=== PATIENT | male | born 1980 | race Caucasian/White ===

== ENCOUNTER 2020-05-02 16:23 | Emergency (ER) | payer BC ==
--- NOTE | 2020-05-02 17:22 | EDM.PDOC ---
ED HPI GENERAL MEDICAL PROBLEM - General Chief Complaint: Respiratory Problem Stated Complaint: COVID POSITIVE, POSSIBLE PNUEMONIA Time Seen by Provider: 05/02/20 16:57 Source of Information: Reports: Patient History Limitations: Reports: No Limitations - History of Present Illness INITIAL COMMENTS - FREE TEXT/NARRATIVE: HISTORY AND PHYSICAL: History of present illness: Patient is a 40-year-old male who presents to the emergency room after he was instructed to by the clinic. Patient states he was diagnosed with COVID-19 and was swabbed 2 to 3 days ago. Patient states he received a call today from the clinic stating he was Covid positive. Patient states that a few days ago he was having a cough. Patient states he is not having any symptoms today and has not had any symptoms the past few days. Patient states when the clinic called he told them he had a cough that caused some chest pain 3 days ago but other than that has not having any symptoms today. Patient states he is not currently having any chest pain and states he is completely symptom-free and has no complaints at this time. Patient denies fever, chills, chest pain, shortness of breath, or cough. Denies headache, neck stiff ness, change in vision, syncope, or near syncope. Denies nausea, vomiting, abdominal pain, diarrhea, constipation, or dysuria. Has not noted any blood in urine or stool. Patient has been eating and drinking appropriately. Review of systems: As per history of present illness and below otherwise all systems reviewed and negative. Past medical history: As per history of present illness and as reviewed below otherwise noncontributory. Surgical history: As per history of present illness and as reviewed below otherwise noncontributory. Social history: See social history for further information Family history: As per history of present illness and as reviewed below otherwise noncontributory. Physical exam: General: Patient is alert, oriented, and in no acute distress. Patient sitting comfortably on exam table. HEENT: Atraumatic, normocephalic, pupils equal and reactive bilaterally, negative for conjunctival pallor or scleral icterus, mucous membranes moist, TMs normal bilaterally, throat clear, neck supple, nontender, trachea midline. No drooling or trismus noted. No meningeal signs. No hot potato voice noted. Lungs: Clear to auscultation, breath sounds equal bilaterally, chest nontender. Heart: S1S2, regular rate and rhythm without overt murmur Abdomen: Soft, nondistended, nontender. Negative for masses or hepatosplenomegaly. Negative for costovertebral tenderness. Pelvis: Stable nontender. Genitourinary: Deferred. Rectal: Deferred. Skin: Intact, warm, dry. No lesions or rashes noted. Extremities: Atraumatic, negative for cords or calf pain. Neurovascular unremarkable. Neuro: Awake, alert, oriented. Cranial nerves II through XII unremarkable. Cerebellum unremarkable. Motor and sensory unremarkable throughout. Exam nonfocal. Notes: Patient is tachycardic 110s on exam but declines diagnostics for tachycardia evaluation. All risks vs benefits discussed with patinet and expresses understanding. Strict return precautions thoroughly discussed with patient and expresses understanding. Symptoms are prompt return to the ED thoroughly discussed with patient. Discussed importance for follow-up with a primary care provider. Voices understanding and is agreeable to plan of care. Denies any further questions or concerns at this time. Diagnostics: EKG (Patient declines all other diagnostics and evaluation for tachycardia. All risks vs benefits discussed with patient and expresses understanding.) Therapeutics: None Prescription: None Impression: COVID-19 infection Tachycardia, unspecified Plan: 1. Please start and/or continue to take your vitamin with folic acid once daily. 2. Pelvic rest until cleared by your OBGYN (no tampons, sex, etc...) 3. Tylenol as needed for pain management. This is safe to use in . 4. Follow up with your PASTRYCOOK as discussed. Return to the ED as needed and as discussed. Definitive disposition and diagnosis as appropriate pending reevaluation and review of above. - Related Data Allergies Allergy/AdvReac Type Severity Reaction Status Date / Time No Known Allergies Allergy Verified 05/02/20 16:58 Home Meds: Home Meds . [No Known Home Meds] 05/02/20 [History] Past Medical History Respiratory History: Reports: Sleep Apnea, Other (See Below) Other Respiratory History: on cpap - Past Surgical History HEENT Surgical History: Reports: Adenoidectomy, Myringotomy w Tube(s), Tonsillectomy Respiratory Surgical History: Reports: None Social & Family History - Family History Family Medical History: No Pertinent Family History - Tobacco Use Tobacco Use Status *Q: Never Tobacco User Second Hand Smoke Exposure: No - Caffeine Use Caffeine Use: Reports: None - Recreational Drug Use Recreational Drug Use: No ED ROS GENERAL - Review of Systems Review Of Systems: Comprehensive ROS is negative, except as noted in HPI. ED EXAM, GENERAL - Physical Exam Exam: See Below (see dictation) Course - Vital Signs Last Recorded V/S: Last Vital Signs Temp 97.7 F 05/02/20 16:50 Pulse 112 H 05/02/20 16:50 Resp 20 05/02/20 16:50 BP 146/96 H 05/02/20 16:50 Pulse Ox 96 05/02/20 16:50 Departure - Departure Time of Disposition: 17:13 Disposition: Home, Self-Care 01 Clinical Impression: COVID-19 virus infection, Tachycardia - Discharge Information Referrals: Azeb Cheatham [employer] [Primary Care Provider] - Additional Instructions: The following information is given to patients seen in the emergency department who are being discharged to home. This information is to outline your options for follow-up care. We provide all patients seen in our emergency department with a follow-up referral. The need for follow-up, as well as the timing and circumstances, are variable depending upon the specifics of your emergency department visit. If you don't have a primary care physician on staff, we will provide you with a referral. We always advise you to contact your personal physician following an emergency department visit to inform them of the circumstance of the visit and for follow-up with them and/or the need for any referrals to a consulting specialist. The emergency department will also refer you to a specialist when appropriate. This referral assures that you have the opportunity for follow-up care with a specialist. All of these measure are taken in an effort to provide you with optimal care, which includes your follow-up. Under all circumstances we always encourage you to contact your private physician who remains a resource for coordinating your care. When calling for follow-up care, please make the office aware that this follow-up is from your recent emergency room visit. If for any reason you are refused follow-up, please contact the [facility] Emergency Department at and asked to speak to the emergency department charge nurse. [facility] [address] [place] [id number] [facility] [address] [place] [address] 1. Continue to monitor for trouble breathing, new confusion or inability to arouse, bluish lips or face or any of the other symptoms we discussed -if this occurs please return to the emergency room.Continue to monitor your health at home for worsening symptoms so that you can be taken care of and treated quickly if needed. 2. Please self quarantine until 10 days have passed since your symptoms began AND you are fever free (<100.4 degrees fahrenheit) for 24 hours without the use of fever-reducing medications AND symptoms are improving. You should restrict activities outside of your home, except for getting medical care. Do not go to work, school, or public areas. Avoid using public transportation, ride-sharing, or taxis. Inform any persons that you have been in contact with since you started becoming symptomatic that you have tested positive; they should be made aware and take the appropriate steps as needed. 3. You may alternate Tylenol and ibuprofen as needed for pain and fever management. 4. The [facility] will be calling you and following up with you. The [place] COVID 19 Hotline phone number , They are open Tuesday - Tuesday 7am - 7pm. Follow up with your primary care provider for re-evaluation and re-testing after quarantine and discuss when you should be seen. 5. For more specific guidelines regarding isolation/quarantine please visit this website. https://www.health.[place].gov/sites/www/files/documen ts/Files/JUANITA/coronavirus/Factsheet_for_People_With_COVID-19.pdf Sepsis Event Note (ED) - Evaluation Sepsis Screening Result: No Definite Risk - Focused Exam Vital Signs: Vital Signs Temp Pulse Resp BP Pulse Ox 05/02/20 16:50 97.7 F 112 H 20 146/96 H 96
--- NOTE | 2020-05-02 18:32 | PCM.SN.2 ---
#1 Interpretation EKG Date: 05/02/20 Time: 16:54 Rhythm: NSR Rate (Beats/Min): [employer]: Normal P-Wave: Present QRS: Normal ST-T: Normal QT: Normal Comparison: NA - No Prior EKG EKG Interpretation Comments: Sinus Tachycardia, limited by artifact
== END 2020-05-02 17:41 | disposition home or self-care (01) ==
LOC: MW.ED 16:23
DX: U07.1 COVID-19 (principal); R00.0 Tachycardia, unspecified
CPT/HCPCS: 93005; 93010; 99283; 99284-25

== ENCOUNTER 2021-07-26 21:17 | Emergency (ER) | payer BC, MEDICAID ==
[2021-07-26] MEDS: HYDROmorphone 1 MG/ML Syringe IVPUSH ONE ×2 (21:49→23:36)
[2021-07-26] MEDS: Sodium Chloride 0.9% 2.5 ML Syringe FLUSH PRN (21:49)
[2021-07-26] MEDS: Ondansetron 4 MG/2 ML SDV IVPUSH ONE (21:49)
[2021-07-26] MEDS: Sodium Chloride 0.9% 10 ML Syringe FLUSH PRN (21:49)
[2021-07-26] MEDS: Lactated Ringers 1,000 ML IV STA (22:04)
[2021-07-26 22:34] LABS: BLOOD UREA NITROGEN,BUN 8 mg/dL (7.0-18.0); CARBON DIOXIDE,CO2 22.8 mmol/L (21.0-32.0); CHLORIDE,CL 105 mmol/L (98-107); GLUCOSE RANDOM 90 mg/dL (74-106); POTASSIUM,K 3.4 mmol/L (3.5-5.1); SODIUM,NA 143 mmol/L (136-148)
[2021-07-26] MEDS: Iopamidol 755 MG/ML 500 ML Multipack Bottle IVPUSH ONE (22:56)
== END 2021-07-27 00:50 | disposition home or self-care (01) ==
LOC: MW.ED 21:17
DX: K42.9 Umbilical hernia without obstruction or gangrene (principal)
CPT/HCPCS: 36415; 74177; 80053; 81003; 83605; 85025; 87040; 96374; 96375; 96376; 99284; J1170; J2405; J7120; Q9967; 99282

== ENCOUNTER 2021-08-10 06:19 | Day surgery (SDC) | payer MEDICAID ==
[~2021-08-10 06:19] MED LIST: Acetaminophen 1,000 MG in Premix Bag 1 BAG IV SCH; Lactated Ringers 1,000 ML IV SCH; Pregabalin 75 MG Cap PO SCH; ceFAZolin 2 GM in Premix Bag 1 BAG IV SCH
[2021-08-10] MEDS ORDERED: Octyl 2-Cyanoacrylate 1 Tube ONE (07:16)
[2021-08-10] MEDS ORDERED: Bupivacaine 0.5% 30 ML SDV ONE ×2 (07:16→07:37)
[2021-08-10] MEDS ORDERED: Lidocaine 2% 5 ML SDV ONE (07:22)
[2021-08-10] MEDS ORDERED: Rocuronium Bromide 50 MG/5 ML Syringe ONE (07:22)
[2021-08-10] MEDS ORDERED: Sugammadex Sodium 200 MG/2 ML VIAL ONE (07:22)
[2021-08-10] MEDS ORDERED: Ondansetron 4 MG/2 ML SDV ONE (07:22)
[2021-08-10] MEDS ORDERED: Dexamethasone 4 MG/ML 5 ML MDV ONE (07:22)
[2021-08-10] MEDS ORDERED: Propofol 200 MG/20 ML SDV ONE (07:23)
[2021-08-10] MEDS ORDERED: fentaNYL 100 MCG/2 ML SDV ONE (07:23)
[2021-08-10] MEDS ORDERED: Midazolam 1 MG/ML 2 ML SDV ONE (07:23)
[2021-08-10] MEDS ORDERED: Albuterol 0.083% 2.5 MG/3 ML Neb Soln NEB PRN (07:53)
[2021-08-10] MEDS ORDERED: Naloxone 0.4 MG/ML SDV IVPUSH PRN (07:53)
[2021-08-10] MEDS ORDERED: HYDROmorphone 1 MG/ML Syringe IVPUSH PRN (07:53)
[2021-08-10] MEDS ORDERED: Ondansetron 4 MG/2 ML SDV IVPUSH PRN (07:53)
[2021-08-10] MEDS ORDERED: Morphine 4 MG/ML VIAL IVPUSH PRN (07:53)
[2021-08-10] MEDS ORDERED: Metoclopramide 10 MG/2 ML SDV IVPUSH PRN (07:53)
[2021-08-10] MEDS ORDERED: ePHEDrine 50 MG/ML SDV ONE (08:45)
[2021-08-10] MEDS: fentaNYL 100 MCG/2 ML SDV IVPUSH PRN ×2 (10:03→10:16)
== END 2021-08-10 11:39 | disposition home or self-care (01) ==
LOC: MW.SDS 06:19
PROVIDERS: ATTEND Surgery
DX: K42.9 Umbilical hernia without obstruction or gangrene (principal); K21.9 Gastro-esophageal reflux disease without esophagitis; G47.30 Sleep apnea, unspecified; E66.9 Obesity, unspecified; Z68.42 Body mass index [BMI] 45.0-49.9, adult; F17.200 Nicotine dependence, unspecified, uncomplicated; Z98.890 Other specified postprocedural states; Z90.89 Acquired absence of other organs; Z98.84 Bariatric surgery status; Z79.899 Other long term (current) drug therapy
CPT/HCPCS: 49585; A9270; J0131; J0690; J1100; J1170; J2250; J2704; J3010; J3490; J7120; 00750; 64488; C1781; J2405

== ENCOUNTER 2021-11-15 08:39 | Emergency (ER) | payer MEDICAID ==
[2021-11-15] MEDS ORDERED: Ketorolac 30 MG/ML SDV IVPUSH ONE (08:49)
[2021-11-15 09:37] LABS: CORONAVIRUS COVID-19 NAA NEGATIVE (NEGATIVE); INFLUENZA A NAA NEGATIVE (NEGATIVE); INFLUENZA B NAA NEGATIVE (NEGATIVE)
[2021-11-15 09:48] LABS: BLOOD UREA NITROGEN,BUN 11 mg/dL (7.0-18.0); CARBON DIOXIDE,CO2 30.1 mmol/L (21.0-32.0); CHLORIDE,CL 101 mmol/L (98-107); GLUCOSE RANDOM 95 mg/dL (74-106); POTASSIUM,K 3.8 mmol/L (3.5-5.1); SODIUM,NA 137 mmol/L (136-148)
[2021-11-15 09:57] LABS: ESTIMATED GFR > 60.0 ml/min
[2021-11-15] MEDS ORDERED: Iopamidol 755 MG/ML 500 ML Multipack Bottle IVPUSH ONE (17:15)
== END 2021-11-15 11:08 | disposition home or self-care (01) ==
LOC: MW.ED 08:39
DX: R09.1 Pleurisy (principal); K21.9 Gastro-esophageal reflux disease without esophagitis; E66.9 Obesity, unspecified; Z68.41 Body mass index [BMI] 40.0-44.9, adult; Z20.822 Contact with and (suspected) exposure to COVID-19; Z79.899 Other long term (current) drug therapy
CPT/HCPCS: 0240U; 36415; 71045; 71275; 80053; 84484; 85025; 85379; 85610; 85730; 93005; 96374; 99285; J1885; Q9967; 93010

== ENCOUNTER 2022-06-07 13:05 | Emergency (ER) | payer MEDICAID ==
[2022-06-07] MEDS ORDERED: chlordiazePOXIDE 25 MG Cap PO ONE (14:23)
[2022-06-07 15:03] LABS: BLOOD UREA NITROGEN,BUN 10 mg/dL (7.0-18.0); CARBON DIOXIDE,CO2 27.4 mmol/L (21.0-32.0); CHLORIDE,CL 101 mmol/L (98-107); GLUCOSE RANDOM 94 mg/dL (74-106); POTASSIUM,K 4.2 mmol/L (3.5-5.1); SODIUM,NA 140 mmol/L (136-148)
[2022-06-07 15:19] LABS: ESTIMATED GFR 96 mL/min (>60)
[2022-06-07 15:22] LABS: CORONAVIRUS COVID-19 NAA NEGATIVE (NEGATIVE); INFLUENZA A NAA NEGATIVE (NEGATIVE); INFLUENZA B NAA NEGATIVE (NEGATIVE); RESPIRATORY SYNCYTIAL VIR NAA NEGATIVE (NEGATIVE)
== END 2022-06-07 16:13 | disposition home or self-care (01) ==
LOC: MW.ED 13:05
DX: F10.239 Alcohol dependence with withdrawal, unspecified (principal); Z20.822 Contact with and (suspected) exposure to COVID-19; E66.9 Obesity, unspecified
CPT/HCPCS: 0241U; 36415; 80053; 85025; 99284; A9270

== ENCOUNTER 2022-11-12 15:09 | Emergency (ER) | payer MEDICAID ==
[2022-11-12] MEDS ORDERED: Octyl 2-Cyanoacrylate 0.5 g/0.5 mL 1 APPLIC TUBE TOP ONE (15:50)
[2022-11-12] MEDS ORDERED: Ketorolac 60 MG/2 ML SDV IM ONE (16:10)
== END 2022-11-12 17:20 | disposition home or self-care (01) ==
LOC: MW.ED 15:09
DX: S01.21XA Laceration without foreign body of nose, initial encounter (principal); S20.212A Contusion of left front wall of thorax, initial encounter; W19.XXXA Unspecified fall, initial encounter
CPT/HCPCS: 12011; 71101; 96372; 99283; A9270; J1885

== ENCOUNTER 2024-07-29 15:45 | Emergency (ER) | payer OTHER ==
[2024-07-29] MEDS ORDERED: Sodium Chloride 0.9% 2.5 ML Syringe FLUSH PRN (15:58)
[2024-07-29] MEDS ORDERED: Sodium Chloride 0.9% 10 ML Syringe FLUSH PRN (15:58)
[2024-07-29] MEDS: Pantoprazole 80 MG in Sodium Chloride 0.9% 10 ML IVPUSH STA (16:16)
[2024-07-29] MEDS: Sodium Chloride 0.9% 1,000 ML IV STA (16:16)
[2024-07-29 16:23] LABS: BASOPHILS ABSOLUTE AUTO 0.05 K/uL (0.00-0.20); BASOPHILS PERCENT AUTO 0.5 % (0.0-1.0); EOSINOPHILS ABSOLUTE AUTO 0.01 K/uL (0.00-0.45); EOSINOPHILS PERCENT AUTO 0.1 % (0.0-6.0); HEMATOCRIT 43.3 % (42.0-52.0); HEMOGLOBIN 15.2 g/dL (14.0-18.0); IMMATURE GRAN ABSOLUTE AUTO 0.01 K/uL (0.00-0.05); IMMATURE GRAN PERCENT AUTO 0.1 % (0.0-0.4); LYMPHOCYTES ABSOLUTE AUTO 1.68 K/uL (1.00-4.80); LYMPHOCYTES PERCENT AUTO 16.6 % (24.0-44.0); MEAN CORPUSCULAR HEMOGLOBIN 32.1 pg (28.0-32.0); MEAN CORPUSCULAR HGB CONC 35.1 g/dL (32.0-36.0); MEAN CORPUSCULAR VOLUME 91.4 fL (83.0-99.0); MEAN PLATELET VOLUME 9.1 fL (9.4-12.4); MONOCYTES ABSOLUTE AUTO 0.85 K/uL (0.00-0.80); MONOCYTES PERCENT AUTO 8.4 % (0.0-8.0); NEUTROPHILS ABSOLUTE AUTO 7.52 K/uL (1.80-7.70); NEUTROPHILS PERCENT AUTO 74.3 % (41.0-71.0); PLATELET COUNT,PLT 247 K/uL (150-400); RED BLOOD CELL COUNT 4.74 M/uL (4.52-5.90); WHITE BLOOD CELL COUNT,WBC 10.12 K/uL (3.9-11.3)
[2024-07-29 16:37] LABS: INR 1.1 (0.86-1.11)
[2024-07-29 16:52] LABS: A/G RATIO 0.9 (0.9-1.6); ALANINE AMINOTRANSFERASE,ALT 52 IU/L (14-63); ALKALINE PHOSPHATASE 76 U/L (46-116); ASPARTATE AMNIOTRANSFERASE,AST 40 IU/L (15-37); BILIRUBIN TOTAL 2.3 mg/dL (0.2-1.0); BLOOD UREA NITROGEN,BUN 9 mg/dL (7.0-18.0); CALCIUM 8.5 mg/dL (8.5-10.1); CARBON DIOXIDE,CO2 22.9 mmol/L (21.0-32.0); CHLORIDE,CL 98 mmol/L (98-107); CREATININE 1.1 mg/dL (0.8-1.3); ESTIMATED GFR 85 mL/min (>60); GLUCOSE RANDOM 104 mg/dL (74-106); LIPASE 83 U/L (16-77); MAGNESIUM 1.7 mg/dL (1.8-2.4); POTASSIUM,K 3.6 mmol/L (3.5-5.1); PROTEIN TOTAL,TP 8.4 g/dL (6.4-8.2); SODIUM,NA 138 mmol/L (136-148)
[2024-07-29] MEDS: Magnesium Sulf/Wat 2 GM/50 mL 2 GM in Premix Bag 1 BAG IV STA (17:05)
[2024-07-29] MEDS: Iopamidol 755 MG/ML 500 ML Multipack Bottle IVPUSH STA (17:16)
== END 2024-07-29 18:31 | disposition home or self-care (01) ==
LOC: MW.ED 15:45
DX: K76.0 Fatty (change of) liver, not elsewhere classified (principal); F10.10 Alcohol abuse, uncomplicated; E83.42 Hypomagnesemia; E80.6 Other disorders of bilirubin metabolism; K21.9 Gastro-esophageal reflux disease without esophagitis; E66.9 Obesity, unspecified; F17.210 Nicotine dependence, cigarettes, uncomplicated; Z98.84 Bariatric surgery status; Z79.899 Other long term (current) drug therapy; Z75.8 Other problems related to medical facilities and other health care; Y90.9 Presence of alcohol in blood, level not specified
CPT/HCPCS: 36415; 74177; 80053; 83690; 83735; 84484; 85025; 85610; 93005; 96361; 96365; 96375; 99284; J2470; J3475; J7030; Q9967